=== PATIENT | male | born 1955 | race Caucasian/White ===

== ENCOUNTER 2024-09-21 06:50 | Day surgery (SDC) | payer MEDICARE, OTHER, SELFPAY ==
--- NOTE | 2024-09-21 08:29 | ITS.CL.IMPLP ---
Dry Paste Supervisor - Implant Loop
Implant Loop
Procedure Report:
Date of Procedure: September 21, 2024
Procedure: Insertable Loop Recorder Implantation
Indication:
Atrial fibrillation
Procedure:
The patient was brought to the procedure area in a fasting state. The anterior chest was prepped and draped in standard sterile fashion. The fourth intercostal space along the left sternal border was identified and this area was anesthetized with 10
mL of 1% lidocaine. After gathering the skin in this area, a small punch incision was made at approx intercostal space 4-5 at left costo-sternal junction using the provided scalpel/punch tool. The loop recorder was loaded into the tunneling device.
A tunnel was created in the subcutaneous tissue at a 45� angle along the coronal plane away from the sternum and towards the left flank. The tunneling device was inverted and the plunger was depressed, inserting the loop recorder into the
subcutaneous space. The tunneling device was removed. Manual pressure provide hemostasis. Adequate signal was confirmed. The skin was closed with steri-strips. The estimated blood loss was < 1 cc. A clean dressing was placed over the wound.
There were no complications.
Implant:
Med[employer]onic Reveal LINQ
Conclusion: Uncomplicated implantation of loop recorder.
Recommendation: Routine ILR care.
== END 2024-09-21 08:48 | disposition home or self-care (01) ==
LOC: CATH 06:50
PROVIDERS: ATTENDING PHYSICIAN Internal Medicine Cardiovascular Disease; FAMILY PHYSICIAN Family Medicine
DX: Z09 Encounter for follow-up examination after completed treatment for conditions other than malignant neoplasm (principal); I48.91 Unspecified atrial fibrillation; Z79.899 Other long term (current) drug therapy; Z79.01 Long term (current) use of anticoagulants
CPT/HCPCS: 33285; C1764

== ENCOUNTER 2024-10-07 07:05 | Day surgery (SDC) | payer MEDICARE, OTHER, SELFPAY ==
[2024-09-15 09:26] VITALS: BMI 29.2
--- NOTE | 2024-09-15 13:06 | HPS.HSE ---
Family Physician
-
Family Physician: INTERVIEWE UNKNOWN - PT NOT
Chief Complaint
-
Paroxysmal atrial fibrillation.
History of Present Illness
The patient is a 69 year old male presenting today for paroxysmal atrial fibrillation. The patient reports a history of mild palpitations and intermittent dizziness and lightheadedness associated with this diagnosis. He previously
underwent 2 cardioversions in March 2022 and October 2023 due to his arrhythmia. He is on current pharmacological therapy with Carvedilol and Flecainide. He has been compliant with Xarelto for oral anticoagulation. He notes that his atrial
fibrillation symptoms greatly interfere with his activities of daily living and overall impact his quality of life. He is interested in pursuing pulmonary vein isolation for further arrhythmia management. He denies any current complaints today such
as chest pain, shortness of breath at rest, nausea, vomiting, diarrhea, cough, sore throat, or fever.
Medical History
Past Medical History
Past Medical History: Reports Other
Additional Past Medical History:
1. Paroxysmal atrial fibrillation, status post cardioversion x2; pharmacological therapy with Carvedilol and Flecainide, oral anticoagulation with Xarelto.
2. Hypertension.
3. Hyperlipidemia.
4. Orthostatic hypotension.
5. First degree AV block.
6. Mild diffuse fusiform aneurysmal dilatation of the ascending aorta, 4.5 cm.
7. Allergy induced asthma.
8. Pulmonary nodules and thyroid nodularity on pre-procedural chest CT.
9. Obstructive sleep apnea, compliant with CPAP.
10. GERD.
11. Colon polyps.
12. Diverticulosis.
13. Nephrolithiasis per records.
14. Migraines.
15. Vertigo.
16. BPH.
17. Stargardt's disease with legal blindness.
Past Surgical History: Reports Other
Additional Past Surgical History:
1. Cardioversion x2.
2. Left rotator cuff repair.
3. Rhinoplasty x2.
4. Childhood hernia repair.
5. [place] teeth extraction.
6. Colonoscopy x3.
7. Endoscopy x3.
Social History
Tobacco: Non-smoker
Alcohol: None
Living: Alone (in a 2 story home. )
Family History
Family History: Not pertinent
Allergies / Home Medications
Allergy/Medication List:
Home medications:
1. Acetylcysteine 600 mg p.o. daily.
2. Alpha lipoic acid 600 mg p.o. daily.
3. Carvedilol 6.25 mg p.o. twice a day.
4. Nexium 20 mg p.o. every evening.
5. Zetia 10 mg p.o. every evening.
6. Flecainide 50 mg p.o. every 12 hours.
7. Midodrine 5 mg p.o. twice a day.
8. Xarelto 20 mg p.o. daily.
9. Tamsulosin 0.4 mg p.o. daily.
Review of Systems
-
A 12 point ROS was completed and negative except as noted: Yes
Physical Exam
Vital Signs
Blood pressure 124/72. Heart rate 75. Respirations 18. Pulse ox 96% on room air.
Height 6 feet, 1 inch. Weight 100.4 kg. BMI 29.2.
Physical Exam
General: Well Developed, Well Nourished and No Apparent Distress
HEENT: NormoCephalic, Moist mucous membranes, Atraumatic and Other (Legal blindness of bilateral eyes )
Respiratory: Clear
Cardiac: Regular Rhythm
GI: Soft, Non Tender and Non Distended
Musculoskeletal: Normal Gait & Station (Ambulates with visually impaired cane. )
Skin: Warm and Dry
Neuro: AO x 3 and Nonfocal/grossly intact
Laboratory Results
-
DIAGNOSTIC STUDIES as of 09/15/2024: White blood cell count 7.3. Hemoglobin 15.9. Platelet count 234,000. PT 20.7. INR 1.72. Sodium 140. Potassium 4.5. BUN 16. Creatinine 0.9. Glucose 90. Calcium 9.2. Magnesium 2.2. AST 22. ALT 23. Albumin 4.4. Type
and screen O positive.
EKG 09/15/2024: Sinus rhythm with first degree AV block. Inferior infarct, age undetermined.
Chest CT 09/15/2024: Conventional/nonanomalous pulmonary venous anatomy. The right inferior pulmonary vein has a conjoined accessory superior segment right lower lobe pulmonary vein situated at the superior margin of the inferior pulmonary vein,
which is included in the coronal measurement of the atriovenous junction. On the left, superior and inferior pulmonary veins are conjoined, forming a common atriovenous junction. No left atrial appendage filling defect. Mild diffuse fusiform
aneurysmal dilatation of the ascending aorta, 4.5 cm. Incidental mild bronchial wall thickening and mucous plugging. 4 mm pulmonary nodule in the right lower lobe and 3 mm perifissural nodule on the right. Consider follow-up in one year if the
patient is at increased risk. Thyroid nodularity. Consider ultrasound follow-up.
Impression/Plan
-
IMPRESSION/PLAN:
1. Paroxysmal atrial fibrillation: The patient is in need of a pulmonary vein isolation with Dr. Isaías Reddy on 10/07/2024. The benefits and risks of the procedure have been explained to the patient. The patient understands these risks and
wishes to proceed. He will not be required to undergo a pre-procedural transesophageal echocardiogram as he has been complaint with his home oral anticoagulation. He will continue Eliquis uninterrupted prior to his procedure. He will take no
medications the morning of his ablation.
2. Pulmonary nodules and thyroid nodularity on pre-procedural chest CT: The results of his chest CT were forwarded to his primary care physician, Dr. Eduin Rocha, for further follow-up and management. These findings should not delay his
procedure on 10/07/2024.
[2024-10-07] VITALS (20 sets, daily range): BP systolic 96–148; BP diastolic 62–102; BMI 29.2
[2024-10-07 09:06] LABS: ACT-LR - POC 297 Seconds (116-155)
[2024-10-07 09:29] LABS: ACT-LR - POC 351 Seconds (116-155)
[2024-10-07 09:47] LABS: ACT-LR - POC 305 Seconds (116-155)
--- NOTE | 2024-10-07 10:16 | ITS.CL.ABL ---
Well Drill Operator Helper Cable Tool - Ablation
Ablation
Procedure Report:
ELECTROPHYSIOLOGIC STUDY AND POSSIBLE ABLATION
DATE: 10/07/24
Primary Care Provider: Dr. Eduin Brantley
INDICATION:
Symptomatic Atrial Fibrillation.
Paroxysmal
HISTORY: See H and P.
Symptomatic AF, poorly controlled with attempted medical therapy (which has included flecainide)
HAS-BLED:
Age
CHADSVASc: 2
HTN
Age
PRESENTING RHYTHM: SR
HISTORY: See H and P.
Symptomatic AF, poorly controlled with attempted medical therapy.
ANTIARRHYTHMIC DRUG: Flecainide
ANTICOAGULATION: Rivaroxaban
'TIME-OUT': called and confirmed.
SEDATION/ANESTHESIA: provided via the anesthesia department using general anesthesia.
PROCEDURE:
Ultrasound Guidance performed by ut was utilized for femoral venous Vascular Access b/l.
A decapolar CS catheter was placed within the CS for mapping and pacing.
The intracardiac ultrasound catheter was positioned in the RA for continuous intracardiac ultrasound imaging.
Heparin bolus and infusion to target ACT at 300 -350 seconds was administered. Transseptal puncture was performed. This entailed advancing a sheath with dilator into the superior vena cava and withdrawing both (monitoring intracardiac ultrasound,
fluoroscopy and tip pressure) with the tip oriented toward the atrial septum. The fossa ovalis was engaged (indicated by sudden displacement of the sheath tip as well as tenting of the fossa seen on intracardiac ultrasound).
The [employer] transseptal system was used. Left atrial catheter position was confirmed by echocardiographic imaging and fluoroscopy followed by RF delivery using the WHMSOFT system resulting in successful LA access with pressure monitoring
demonstrating LA pressure waveforms (LA mean pressure 8 mm Hg). The sheath was advanced over the dilator and positioned in the left atrium.
The [employer] multipolar mapping catheter was initially positioned through the transseptal sheath for high density mapping.
Geometry and voltage mapping was performed using the Virk multipolar grid catheter. Ensite-X was utilized for three-dimensional electroanatomical mapping.
A 3-D map was created using [employer] in Voxel mode. A 3-D reconstructed CT image was compared to the 3-D Navex map to assist in anatomic evaluation, mapping and ablation.
The [employer] catheter and system was used for cardiac ablation. Catheter positioning was guided and confirmed using both I.C.E. and fluoroscopy.
PV isolation approach was used to electrically isolate each PV ostia (LSPV, LIPV, RSPV, RIPV).
Additional energy applications/additional ablation set was required to accomplish wide area circumferential ablation around each of the pulmonary vein sets and additionally ablation to accomplish LA posterior wall ablation.
Remapping with the [employer] multipolar grid catheter found that all PVPs were eliminated at each vein demonstrating entrance block. Also pacing from the multipolar mapping catheter around the the circumference of the ostia was performed at 10 ma and
2.0 msec output to assess for exit block. This demonstrated electrical isolation at the pulmonary vein ostia of the LSPV, LIPV, RIPV but not the right superior pulmonary vein as there is continued electrical connection at the superior anterior
quadrant of the right superior pulmonary vein. This necessitated repositioning of the ablation catheter to this area where additional pulsed electric field energy deliveries were required to fully isolate the pulmonary vein. Overall at the end of
the case there is entrance and exit block from each of the pulmonary veins. There is wide area circumferential ablation as well as left atrial posterior wall ablation with entrance and exit block at the LA posterior wall.
Programmed electrostimulation failed to induce any sustained arrhythmias.
I.C.E. :
Pre-Ablation Post-Ablation
LVEF: 55 % 55 %
WMA: none none
Pericardial effusion: trace trace
COMPLICATIONS:
None
SUMMARY:
- Mapping and ablation to isolate the PVs
- Additional AF ablation set after PVI.
- 3-D Electroanatomical Mapping
- Intracardiac Ultrasound
Post ablation, I discussed today's findings and results with the patient's daughter Dee..
RECOMMENDATIONS:
- Observe in monitored bed.
- Maintain oral anticoagulation.
- Continue discontinue flecainide
- Office visit with EP SUELLEN in 2-4 weeks and with me in 3-4 months.
Copy to: Dr. Eduin Brantley
[2024-10-07] MEDS: SUBLIMAZE 25 MCG IV ×2 (10:49→10:59)
[2024-10-07] MEDS: MAALOX 30 ML PO (11:06)
[2024-10-07] MEDS: ANESTHETIC LOZENGE 1 LOZENGE PO ×2 (11:07→21:45)
[2024-10-07] MEDS: TYLENOL 650 MG PO ×2 (11:10→21:45)
[2024-10-07] MEDS: TORADOL 15 MG IV ×2 (13:57→20:03)
[2024-10-07] MEDS: PROTONIX 40 MG PO (13:59)
--- NOTE | 2024-10-07 15:44 | PTCARENOTE ---
[facility]. AO x3. Legally blind. Right groin dressing CDI. Due to void, chest pain 3 out 10, Toradol did help alleviate his pain, worsens with deep inspiration, POX 97% on room air, lungs clear. SB HR 58, bp 130/82. Daughter
at bedside, call dill in reach
--- NOTE | 2024-10-07 15:45 | CM ---
Reviewed chart. Met with Mr. Wren to review discharge plans. He states prior to admission he resides alone in a spilt level home without any steps to enter. He states he has six steps to get to each level. He states prior to admission he was
independent with ambulation and adls. He states he has CPAP Machine at home. He states he has a prescription plan and uses [facility]. The discharge plan is to return home when medically stable.
[2024-10-07] MEDS: ProAmatine 5 MG PO (17:16)
--- NOTE | 2024-10-07 20:00 | PTCARENOTE ---
Received pt from [facility]. pt resting comfortably in bed S/P PVI ablation. pt is AAOx4, moves all extremities appropriately, and is blind. pt states pain in chest is 3/10, care team aware and PRN Toradol ordered. SB on monitor, Coreg held per
Barry. VSS. heart sounds audible, radial and DP pulses palpable, no edema noted. lungs clear, spo2 96% on RA, pt wears home CPAP at night. hypoactive BS x4 quadrants, abdomen soft non tender. pt voiding clear yellow urine. right femoral site
dressing clean, dry, and intact. PIV maintained. plan is for d/c home 10/08. call dill within reach. will continue to monitor.
[2024-10-07] MEDS: COREG PO (20:05)
[2024-10-07] MEDS: XARELTO 20 MG PO (21:41)
[2024-10-07] MEDS: ZETIA 10 MG PO (21:41)
[2024-10-07] MEDS: FLOMAX 0.4 MG PO (21:41)
--- NOTE | 2024-10-08 | PTCARENOTE ---
pt assessment unchanged. SR/SB on monitor. VSS. pt resting comfortably in bed. pt assisted to rest room and back to bed. call dill within reach. will continue to monitor.
[2024-10-08 03:22] VITALS: BP 92/59
[2024-10-08 03:24] VITALS: BP 100/64
[2024-10-08 03:39] VITALS: BP 98/64
[2024-10-08] MEDS: TORADOL 15 MG IV (03:47)
--- NOTE | 2024-10-08 04:00 | PTCARENOTE ---
pt assessment unchanged. SB on monitor. VSS. SBP has been less than 100 but pt denies any symptoms of hypotension. will continue to monitor.
[2024-10-08 04:28] LABS: Hematocrit 40.8 % (39.0-52.0); Hemoglobin 13.8 g/dL (13.0-18.0); Mean Corp Hgb Conc. 33.8 g/dL (33.0-37.0); Mean Corpuscular Hgb 32.2 pg (27.0-31.0); Mean Corpuscular Volume 95.1 fL (80.0-94.0); Mean Platelet Volume 9.8 fL (7.4-10.4); Platelet Count 237 10^3/uL (130-400); Red Blood Cell Count 4.29 10^6/uL (4.70-6.10); Red Cell Dist. Width 13.2 % (11.5-14.5); White Blood Cell Count 11.5 10^3/uL (4.8-10.8)
[2024-10-08 04:48] LABS: Blood Urea Nitrogen 22 mg/dl (9-20); Calcium 9.2 mg/dl (8.4-10.2); Carbon Dioxide 27 mmol/L (22-30); Chloride 100 mmol/L (98-107); Estimated Creatinine Clearance 88 ml/min; Glucose 117 mg/dl (70-99); Magnesium 2.3 mg/dl (1.6-2.3); Potassium 4.2 mmol/L (3.5-5.1); Sodium 135 mmol/L (135-145); eGFR > 60.00
--- NOTE | 2024-10-08 08:10 | W.PN.CARDCBS ---
Addendum entered and electronically signed by Kailey Oliver PA-C 10/08/24 08:44:
[id number]
Addendum entered and electronically signed by Anjel Croft MD 10/08/24 08:40:
I saw and examined the patient.
The CHIEF LENDING OFFICER or PA's note was reviewed and I agree with the note.
Comment: General: Well developed, well nourished in NAD.
Neck: Supple, no JVD, HJR, carotids +2 B/L, no bruits bilaterally.
Heart: Non displaced PMI, RRR, no murmurs, No S3, S4, no rubs.
Lungs: Clear to auscultation bilaterally, no wheeze, rhonchi, rubs bilaterally,
normal expiratory phase.
Extremities: No clubbing, cyanosis or edema bilaterally.
Neuro: Grossly nonfocal, awake, alert and oriented x3.
He has some pleuritic chest pain. Discussed with the EP and will give short course of Toradol. Stable cardiology status for discharge. Flecainide has been discontinued. Follow-up will be arranged.
Addendum entered and electronically signed by Kailey Oliver PA-C 10/08/24 08:38:
flecainide stopped
Original Note:
Today's Communication / Plan
-
with some pleuritic pain post ablation. for short course toradol
BPs on low side. ambulate patient and follow
would attempt to continue OP coreg and midodrine
xarelto resumed. hgb stable. groin site stable
hopeful for DC later today
Impression / Plan
-
Primary Hand Bunch Maker: Dr. Mando Reddy
Assessment:
Symptomatic paroxysmal atrial fibrillation
Status post PFA 10/07/2024
Chronic anticoagulation with Xarelto
Obstructive sleep apnea
Legally blind, Stargardt disease
HLD
BPH
Migraines
Asthma
Chronic hypotension, on midodrine as OP
Plan:
-s/p PFA 10/07/24
-complains of some pleuritic pain with taking deep breaths, likely post op. requiring toradol overnight. will order short course of toradol until Thursday then tylenol PRN
-in SR/SB on review of tele overnight
-BPs on low side overnight, OP coreg was held last evening. BPs chronically on low side, on chronic midodrine. will ambulate patient this AM. no complaints of dizziness/lightheadedness. he will follow BPs at home
-R groin site NTTP, dressing c/d/i. hgb 13.8
-xarelto resumed post procedure
-hopefully for DC later today
-OP cardiac follow up arranged
-d/w nursing
Progress Note - Hand Bunch Maker
Subjective
Date of Service: October 08, 2024
reports pleuritic chest discomfort. no lightheadedness, dizziness
Objective
Labs:
10/08/24 03:39
10/08/24 03:39
Labs
Hgb 13.8 g/dL (13.0-18.0) 10/08/24 03:39
Hct 40.8 % (39.0-52.0) 10/08/24 03:39
Plt Count 237 10^3/uL (130-400) 10/08/24 03:39
Sodium 135 mmol/L (135-145) 10/08/24 03:39
Potassium 4.2 mmol/L (3.5-5.1) 10/08/24 03:39
BUN 22 mg/dl (9-20) H 10/08/24 03:39
Creatinine 0.9 mg/dL (0.7-1.3) 10/08/24 03:39
Glucose 117 mg/dl (70-99) H 10/08/24 03:39
Vital Signs and I&O:
Vital Signs
Temp Pulse Resp BP Pulse Ox
98 F 55 16 98/64 96
10/08/24 03:18 10/08/24 06:00 10/08/24 03:18 10/08/24 03:39 10/08/24 03:22
Vital Signs
Temp Pulse Resp BP Pulse Ox
98 F 55 16 98/64 96
10/08/24 03:18 10/08/24 06:00 10/08/24 03:18 10/08/24 03:39 10/08/24 03:22
Intake & Output
10/06/24 10/07/24 10/08/24 10/09/24
07:59 07:59 07:59 07:59
Intake Total 480 / 480
Balance 480 / 480
Physical Exam
Physical Exam
GEN: No distress, awake, alert, oriented x3
HEENT: supple, anicteric, mmm
LUNGS: CTA B/L, no wheezes/rales
CV: Reg, S1/S2, no murmur
ABD: soft, BS+, NT/ND
EXT: No cyanosis, clubbing, edema
NEURO: Gross non-focal
SKIN: Warm, pink, dry. No rash. R groin site NTTP, dressing c/d/i
[2024-10-08 08:15] VITALS: BP 98/66
--- NOTE | 2024-10-08 08:41 | W.DS.TRANS ---
DC Summary - Outside Cutter
-
Discharge Instructions:
Discharge Diagnosis/Procedures AFib, s/p ablation
Diet Low Cholesterol
Driving Restrictions As prior to admission
Instructions:
Stand-Alone Forms: DC Instructions- Cath/EP Lab
Changes to Home Medications: Yes
Discharge Medications:
DC Medications w/original date entered in [employer]
acetylcysteine 600 mg capsule (NAC) 600 mg PO DAILY 09/14/24
alpha lipoic acid 600 mg tablet 600 mg PO HS 09/14/24
carvedilol 6.25 mg tablet (Coreg) 6.25 mg PO BID 09/14/24
esomeprazole magnesium 20 mg capsule,delayed release (Nexium) 20 mg PO HS 09/14/24
ezetimibe 10 mg tablet (Zetia) 10 mg PO HS 09/14/24
midodrine 5 mg tablet 5 mg PO BID 09/14/24
rivaroxaban 20 mg tablet (Xarelto) 20 mg PO HS 09/14/24
tamsulosin 0.4 mg capsule 0.4 mg PO HS 09/15/24
eletriptan 40 mg tablet (Relpax) 40 mg PO ONCE PRN migraines 10/07/24
ketorolac 10 mg tablet 10 mg PO Q8H PRN Pain #9 tabs 10/08/24
Home Medication Changes
short course toradol PRN
Pending Results: No
[2024-10-08] MEDS: ProAmatine 5 MG PO (08:48)
[2024-10-08] MEDS: COREG 6.25 MG PO (08:48)
[2024-10-08 11:08] VITALS: BP 97/64
[2024-10-10 19:06] LABS: Hepatitis C Antibody Negative (Negative)
== END 2024-10-08 12:58 | disposition home or self-care (01) ==
LOC: CATH 07:05
PROVIDERS: Nurse Practitioner; ATTENDING PHYSICIAN Internal Medicine Cardiovascular Disease; OTHER PHYSICIAN Internal Medicine Cardiovascular Disease
DX: I48.0 Paroxysmal atrial fibrillation (principal); I10 Essential (primary) hypertension; E78.5 Hyperlipidemia, unspecified; I95.1 Orthostatic hypotension; I44.0 Atrioventricular block, first degree; I71.21 Aneurysm of the ascending aorta, without rupture; J45.909 Unspecified asthma, uncomplicated; R91.8 Other nonspecific abnormal finding of lung field; G47.33 Obstructive sleep apnea (adult) (pediatric); K21.9 Gastro-esophageal reflux disease without esophagitis; Z86.0100 Personal history of colon polyps, unspecified; K57.90 Diverticulosis of intestine, part unspecified, without perforation or abscess without bleeding; N20.0 Calculus of kidney; G43.909 Migraine, unspecified, not intractable, without status migrainosus; R42 Dizziness and giddiness; N40.0 Benign prostatic hyperplasia without lower urinary tract symptoms; H35.53 Other dystrophies primarily involving the sensory retina; H54.8 Legal blindness, as defined in USA; R07.89 Other chest pain; K30 Functional dyspepsia; Z79.01 Long term (current) use of anticoagulants; Z79.899 Other long term (current) drug therapy
CPT/HCPCS: C1732; C1894; C1730; C1892; 80048; 83735; 85027; 85347; 86803; 86900; 86901; 93005; 93656; 93657; C1733; C1766; C1769